=== PATIENT | female | born 1955 | race Native Hawaiian/Other Pacific Islander ===

== ENCOUNTER 2016-09-05 20:34 | Emergency (ER) | payer SELFPAY ==
[2016-09-05 20:54] VITALS: RESP 20; TEMP 97.9
[2016-09-05] MEDS ORDERED: Enalaprilat 2.5 MG/2 ML IVP STA (21:25)
[2016-09-05] MEDS ORDERED: Phenylephrine 1% Nasal Spray (15 ml) NAS STA (21:26)
[2016-09-05] MEDS ORDERED: Enalaprilat 2.5 MG/2 ML ONE (21:52)
[2016-09-05 21:53] LABS: BASO # 0.1 K/uL (0.0-0.2); BASO % 0.9 % (0.0-2.0); EOS # 0.3 K/uL (0.0-0.7); EOS % 3.5 % (0.0-4.0); HEMATOCRIT 37.5 % (34.0-47.0); LYMPH # 1.7 K/uL (1.0-4.3); LYMPH % 22.9 % (20.0-40.0); MEAN CELL VOLUME 80.2 fL (81.0-99.0); MEAN CORPUSCULAR HEMOGLOBIN 26.2 pg (27.0-31.0); MEAN CORPUSCULAR HGB CONC 32.6 g/dL (33.0-37.0); MEAN PLATELET VOLUME 7.7 fL (7.2-11.7); MONO # 0.6 K/uL (0.0-0.8); MONO % 8.7 % (0.0-10.0); RED CELL DISTRIBUTION WIDTH 13.3 % (11.5-14.5); WHITE BLOOD COUNT 7.4 K/uL (4.8-10.8)
[2016-09-05] MEDS ORDERED: Phenylephrine 1% Nasal Spray (15 ml) ONE (21:59)
[2016-09-05 22:04] LABS: CHLORIDE 93 mmol/L (98-107); POTASSIUM 4.6 mmol/L (3.6-5.2); SODIUM 133 mmol/L (132-148)
[2016-09-05 22:06] LABS: ALB/GLOB RATIO 1.3 (1.0-2.1); AST/SGOT 26 U/L (14-36); BILIRUBIN,TOTAL 0.4 mg/dL (0.2-1.3); CARBON DIOXIDE 29 mmol/L (22-30); GFR AFRICAN-AMERICAN > 60
[2016-09-05 22:07] LABS: ALKALINE PHOSPHATASE 103 U/L (38-126); ALT/SGPT 25 U/L (9-52); BLOOD UREA NITROGEN 22 mg/dL (7-17); CALCIUM 9.3 mg/dl (8.6-10.4); GLUCOSE,RANDOM 95 mg/dL (65-105)
[2016-09-05 22:24] VITALS: PULSE 84
[2016-09-05 23:06] VITALS: BP 170/100; O2SAT 100
--- NOTE | 2016-09-05 23:12 | C.PDOC ---
History Of Present Illness Pt c/o left nose bleed. Time Seen by Provider: 09/05/16 21:15 Chief Complaint (Nursing): ENT Problem History Per: Patient, Family Onset/Duration Of Symptoms: Hrs (tonight) Current Symptoms Are (Timing): Still Present Location Of Bleeding: Left Nare Severity: Moderate Anticoagulant/Antiplatlet Use?: No Additional History Per: Prior Records Past Medical History Reviewed: Historical Data, Nursing Documentation, Vital Signs Vital Signs: Last Vital Signs Temp 97.9 F 09/05/16 20:52 Pulse 84 09/05/16 23:05 Resp 20 09/05/16 23:05 BP 170/100 H 09/05/16 23:05 Pulse Ox 100 09/05/16 23:05 - Medical History PMH: HTN Family History: States: Unknown Family Hx - Social History Hx Alcohol Use: No Hx Substance Use: No - Immunization History Hx Tetanus Toxoid Vaccination: No Hx Influenza Vaccination: Yes Hx Pneumococcal Vaccination: Yes Review Of Systems Except As Marked, All Systems Reviewed And Found Negative. Constitutional: Negative for: Fever, Weakness Cardiovascular: Negative for: Chest Pain Respiratory: Negative for: Shortness of Breath, Hemoptysis Gastrointestinal: Negative for: Vomiting, Abdominal Pain, Melena, Hematochezia, Hematemesis Musculoskeletal: Negative for: Neck Pain Skin: Negative for: Rash Neurological: Negative for: Weakness, Numbness, Seizures, Altered Mental Status , Headache, Dizziness Physical Exam - Physical Exam Appears: Non-toxic, No Acute Distress Skin: Normal Color, Warm, Dry, No Rash Head: Atraumatic, Normacephalic Eye(s): bilateral: PERRL, EOMI Nose: Epistaxis (small amount of blood in left nare), No Deformity, No Septal Hematoma Oral Mucosa: Moist Throat: Normal Neck: Normal ROM, Supple Cardiovascular: Rhythm Regular Respiratory: Normal Breath Sounds, No Accessory Muscle Use Gastrointestinal/Abdominal: Soft, No Tenderness Extremity: Normal ROM Neurological/Psych: Oriented x3, Normal Speech, Normal Cognition, Normal Cranial Nerves, Normal Motor, Normal Sensation ED Course And Treatment - Laboratory Results Result Diagrams: 09/05/16 21:49 09/05/16 21:49 Lab Interpretation: No Acute Changes O2 Sat by Pulse Oximetry: 100 Pulse Ox Interpretation: Normal Progress Note: Neosynephrine soaked kathryn was packed in left nare. On re- examination, bleeding stopped. Source of bleeding could not be visualized. Reassessment Condition: Improved Progress - Interventions Interventions:: Observation - Medications Administered Intravenous: Antihypertensive - Data Reviewed Data Reviewed: Lab, Old records - Patient Status Patient status: Mostly improved - Continuity of Care Discussed patient case with:: Patient, Family-HIPPA compliant, ED Nurse - Patient Plan Patient Plan: Discharge, F/U with PCP, Continue present meds Disposition Counseled Patient/Family Regarding: Studies Performed, Diagnosis, Need For Followup, Rx Given - Disposition Referrals: Teodoro Martinez MD [Staff Provider] - Disposition: HOME/ ROUTINE Disposition Time: 23:15 Condition: IMPROVED Additional Instructions: Eat a low sodium diet. Follow up with your doctor for further management of you blood pressure. Follow up with an ENT specialist if bleeding recurs. Return to the ER if you develop bleeding that does not stop with 10 minutes of direct pressure, worsening of symptoms or if you have any other concerns. Prescriptions: Fluticasone Propionate [Flonase] 2 spr NS DAILY #1 bottle Instructions: Nosebleed (ED), Hypertension (ED) - Clinical Impression Clinical Impression: Uncontrolled hypertension, Left-sided epistaxis
== END 2016-09-05 23:36 | disposition home or self-care (01) ==
LOC: C.ER 20:34
DX: R04.0 Epistaxis (principal); I10 Essential (primary) hypertension